=== PATIENT | female | born 1950 | race Caucasian/White ===

== ENCOUNTER → 2017-07-03 | Outpatient (CLI) | payer MEDICARE, OTHER ==
[2017-02-22 07:34] VITALS: BMI 29.9
[~2017-07-03] MED LIST: ACET-1748 PO; AMOX-559 PO; ASPI81TA94 PO; BIS10S PR; CANA100T PO; CYC10 PO; DOC100 PO; FER325 PO; GINK60TA6 PO; GLY25 PO; GLY5 PO; IBUP600T22 PO; LEVI SUBQ; METF-420 PO; METXR500 PO; MOM PO; MORS15 PO; MULT1CAP59 PO; MUPI22OI28 TP; NAPR220C12 PO; OXYC-865 PO; PER PO; RANI150C17 PO; SEN100 PO; SIMV-49 PO; VALA500T63 PO; VIT1CAPS33 PO; [UNRECOGNIZED DRUG - OTHER] PO
--- NOTE | 2017-07-03 11:40 | RADIOLOGY IMAGING REPORT ---
FACILITY: PATIENT NAME: Yu Dexter : 1950 MR: [id number] V: [id number] EXAM DATE: ORDERING PHYSICIAN: PEYTON CRUZ TECHNOLOGIST: Location: [facility] Patient: Yu Dexter : 1950 Visit/Account:[id number] Date of Sevice: 07/03/2017 EXAMINATION: Abdominal ultrasound complete HISTORY: Abdominal mass superficial, no pain COMPARISON: None. FINDINGS: Gallbladder: There are mobile shadowing stones seen within the gallbladder. The gallbladder wall garner s not appear thickened and there is no demonstration of pericholecystic fluid. There was a positive Gonzalez sign by technologist notation Liver: Increased echogenicity throughout the liver can be seen with fatty infiltration other infiltra tive process Common duct: Normal measuring 4.2 mm. Pancreas: Head and body appear unremarkable. Tail not well seen due to overlying bowel gas Spleen: Normal in size and echogenicity measuring 8.5 cm in length. Kidneys: Normal in size and echogenicity, the right measures 10 cm in length, and the left 10 cm. N o hydronephrosis. Upper abdominal aorta and IVC: Negative. Ascites: In the location of patient's palpable abnormality along the upper anterior abdominal wall is a well-c ircumscribed 1.7 x 2.3 x 0.9 cm echogenic nodule which likely represents a lipoma. IMPRESSION: Cholelithiasis and positive Gonzalez sign by technologist notation. No evidence of biliary ductal dila tation Increased echogenicity throughout liver which can be seen with fatty penetration other infiltrative p rocess 1.7 x 2.3 x 0.9 cm well-circumscribed echogenic nodule along the upper intra-abdominal wall in the lo cation of patient's palpable findings likely representing a lipoma Report Dictated By: Kaylen Luther MD at 07/03/2017 11:31 AM Report E-Signed By: Kaylen Luther MD at 07/03/2017 11:35 AM WSN:[id number]
== END ==
LOC: US 02:38
PROVIDERS: ATTEND Nurse Practitioner Family
DX: K80.20 Calculus of gallbladder without cholecystitis without obstruction (principal); R19.8 Other specified symptoms and signs involving the digestive system and abdomen; K76.0 Fatty (change of) liver, not elsewhere classified
CPT/HCPCS: 76700

== ENCOUNTER → 2018-07-03 | Outpatient (CLI) | payer MEDICARE, OTHER ==
[2017-02-22 07:34] VITALS: BMI 29.9
[~2018-07-03] MED LIST changes: -METF-420 PO; +METF-452 PO
--- NOTE | 2018-07-03 13:50 | RADIOLOGY IMAGING REPORT ---
FACILITY: [facility] PATIENT NAME: Yu Dexter : 1950 MR: [id number] V: [id number] EXAM DATE: ORDERING PHYSICIAN: PEYTON CRUZ [place]CHN[place] [facility] [place] Yu Dex[place] : 1950 Visit/Account:[id number] Date of Sevice: 07/03/2018 MRI left shoulder without contrast Indication: Left shoulder pain which has persisted for 6 months. Comparison: None available Technique: Multiplanar, multisequence MRI examination is performed of the left shoulder without contr ast. FINDINGS: There is a type 1 acromion with a distal subacromial spur. 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 There is superior subluxation of the humeral head with respect to the glenoid. Mild changes of glenohumeral nemo int osteoarthritis are seen. There is a small joint effusion. 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 Examination of the rotator cuff demonstrates complete full-thickness tearing of the supraspinatus ten don at its insertion with up to 2.0 cm of medial tendon retraction. There is moderate severity infras pinatus insertional tendinopathy with intermediate grade undersurface insertional tearing at the ante rior and mid insertion. No full-thickness extension is seen. There is mild subscapularis insertional tendinopathy with low-grade undersurface insertional tearing. The long head biceps tendon is seen wit hin the bicipital groove. The tendon is well seen in the region of the rotator interval. This may ref lect tendinopathy or at least partial-thickness tearing in this location. No definitive rupture. There is a small amount of fluid within the subacromial-subdeltoid bursa. Rotator cuff musculature is normal in bulk. No atrophy seen. IMPRESSION: 1. Complete full-thickness insertional tear of the left shoulder supraspinatus tendon with medial ten don retraction. 2. Infraspinatus insertional tendinopathy with low to intermediate grade undersurface tearing. 3. Abnormal appearance of the long head biceps tendon most pronounced in the region of the rotator in terval. Correlate for tendinopathy and partial-thickness tearing. No definite rupture. 4. Subscapularis tendinopathy with low-grade undersurface insertional tearing. Report Dictated By: Willie Wheeler at 07/03/2018 1:38 PM Report E-Signed By: Willie Wheeler at 07/03/2018 1:46 PM WSN:[id number]
== END ==
LOC: MRI 01:10
PROVIDERS: ATTEND Nurse Practitioner Family
DX: M75.112 Incomplete rotator cuff tear or rupture of left shoulder, not specified as traumatic (principal)

== ENCOUNTER → 2018-07-13 | Outpatient (CLI) | payer MEDICARE, OTHER ==
[2017-02-22 07:34] VITALS: BMI 29.9
[~2018-07-13] MED LIST changes: +OCUVITE SOFTGE1 EACH PO; -VIT1CAPS33 PO
--- NOTE | 2018-07-13 10:56 | EKG ---
FACILITY: [facility] PATIENT NAME: RIZWAN JUAREZ : [id number] MR: [id number] V: [id number] EXAM DATE: ORDERING PHYSICIAN: TOMÁS PALOMINO TECHNOLOGIST: REMI Nguyễn Reason : PREOPSHOULDER Blood Pressure : / mmHG Vent. Rate : 070 BPM Atrial Rate : 070 BPM P-R Int : 164 ms QRS Dur : 074 ms QT Int : 366 ms P-R-T Axes : 049 020 048 degrees QTc Int : 395 ms Normal sinus rhythm Normal ECG Confirmed by TOMÁS TOMPKINS ([id number]) on 07/13/2018 10:08:56 PM Referred By: CANDELARIO Confirmed By:TOMÁS TOMPKINS
== END ==
LOC: RESP 08:58
PROVIDERS: ATTEND Anesthesiology
DX: Z01.812 Encounter for preprocedural laboratory examination (principal); Z01.810 Encounter for preprocedural cardiovascular examination; M75.102 Unspecified rotator cuff tear or rupture of left shoulder, not specified as traumatic; E11.9 Type 2 diabetes mellitus without complications
CPT/HCPCS: 93005